=== PATIENT | female | born 1950 | race Caucasian/White ===

== ENCOUNTER → 2017-12-05 | Outpatient (CLI) | payer MEDICARE ==
[~2017-12-05] MED LIST: LIDODERM PATCH1 EA; LORCET 10-6501 EAC1; Z.0.AMBIEN CR12.5 MG; Z.0.ATIVAN0.5 MG PO; Z.0.CRESTOR10 MG; Z.0.LEXAPRO20 MG; Z.0.NEURONTIN300 MG PO; Z.0.PREMARIN0.625 MG; Z.0.SINGULAIR10 MG; Z.0.ULTRAM 50MG50 MG PO
== END ==
LOC: RAD 14:26
PROVIDERS: ATTEND Anesthesiology
DX: Z79.891 Long term (current) use of opiate analgesic (principal)
CPT/HCPCS: 93005

== ENCOUNTER 2018-06-15 12:21 | Emergency (ER) | payer MEDICARE, OTHER ==
[~2018-06-15] VITALS: Ht 157.5 cm; Wt 60.8 kg
[2018-06-15] MEDS ORDERED: SOD POLYSTYRENE SULFONATE SUSP 15 GM/60 ML BTL PO ONE (12:45)
[2018-06-15] MEDS ORDERED: PROMETHAZINE HCL 25 MG TAB PO ONE (13:00)
[2018-06-15] MEDS ORDERED: CITRATE OF MAGNESIA 300ML BOTTLE PO ONE (13:00)
--- NOTE | 2018-06-15 13:17 | Diagnostic Imaging Report ---
EXAM: ABDOMEN-1VIEW (KUB) DATE: 06/15/2018 12:37 PM INDICATION: pain COMPARISON: None FINDINGS: Bowel Gas Pattern: Non specific gas filled loops of bowel. Pneumoperitoneum: None. Suspicious Calcifications: None. Other: None. IMPRESSION: No acute findings. Signed by: Dr. Jose Roa MD on 06/15/2018 1:13 PM
[2018-06-15] MEDS ORDERED: HYDROCODONE/APAP 10MG-325MG TAB PO ONE (13:30)
[2018-06-15] MEDS ORDERED: LIDOCAINE JELLY 2% 10ML URO-JET ONE (13:30)
[2018-06-15] MEDS ORDERED: ONDANSETRON HCL 4 MG ORAL DISINTEGRATING TAB ONE (13:33)
[2018-06-15] MEDS ORDERED: LIDOCAINE VISC 2% SOLN 15 ML UDC TOP ONE (14:00)
[2018-06-15] MEDS ORDERED: MORPHINE SULFATE 2 MG/ML SYR IV ONE (14:30)
[2018-06-15] MEDS ORDERED: MORPHINE SULFATE INJ 4 MG/ML INJ IV ONE (14:30)
[2018-06-15] MEDS ORDERED: SOD PHOSPHATE/SOD BIPHOSPHATE ENEMA 132 ML BTL PR ONE (15:15)
== END 2018-06-15 15:55 | disposition home or self-care (01) ==
LOC: ER 12:21
DX: K59.00 Constipation, unspecified (principal); K56.41 Fecal impaction; I10 Essential (primary) hypertension; G89.29 Other chronic pain
CPT/HCPCS: 36415; 74018; 99284; J2270; Q0162

== ENCOUNTER 2018-08-12 10:13 | Emergency (ER) | payer MEDICARE ==
[~2018-08-12] VITALS: Ht 157.5 cm; Wt 60.8 kg
--- OUTSIDE RECORDS SUMMARY | 2018-08-12 10:16 | XMS REPORT ---
Author Author [facility] Address Unknown Phone Unavailable Care Team Providers Care Cellar Supervisor Name Role Phone Nida FIERRO Unavailable Unavailable Payers Payer Name Policy Type Policy Number Effective Date Expiration Date Problems This patient has no known problems. Allergies, Adverse Reactions, Alerts Allergy Name Allergy Type Status Severity Reaction(s) Onset Date Inactive Date Treating Clinician Comments triamcinolone acetonide DA Active U 2018-08-12 00:00:00 Sulfa (Sulfonamide Antibiotics) DA Active U 2018-08-12 00:00:00 sulfamethoxazole DA Active U 2018-08-12 00:00:00 trimethoprim DA Active U 2018-08-12 00:00:00 fentanyl DA Active U 2018-08-12 00:00:00 triamcinolone acetonide DA Active U 2015-03-03 00:00:00 Sulfa (Sulfonamide Antibiotics) DA Active U 2015-03-03 00:00:00 sulfamethoxazole DA Active U 2015-03-03 00:00:00 trimethoprim DA Active U 2015-03-03 00:00:00 fentanyl DA Active U 2015-03-03 00:00:00 Medications This patient has no known medications. Results Test Description Test Time Test Comments Text Results Atomic Results Result Comments ABDOMEN-1VIEW (KUB) 2018-06-15 13:13:00 [place] [id number] Patient Name: SANTOS MATSON MR #: [id number] : 1950 Age/Sex: 67/F Req #: [id number] Adm Physician: Ordered by: BRUNO SOSA NP Report #: [id number] Location: ER Room/Bed: Procedure: [id number] DX/ABDOMEN-1VIEW (KUB) Exam Date: Exam Time: REPORT STATUS: Signed EXAM: ABDOMEN-1VIEW (KUB) DATE: 06/15/2018 12:37 PM INDIC ATION: pain COMPARISON: None FINDINGS: Bowel Gas Pattern: Non specific gas filled loops of bowel. Pneumoperitoneum: None. Suspicious Calcifications: None. Other: None. IMPRESSION: No acute findings. Signed by: Dr. Jsoe Roa MD on 06/15/2018 1:13 PM Dictated By: JOSE ROA MD [id number] Transcribed By: ALMITA on 06/15/18 1313 COPY TO: BRUNO SOSA [employer]ENT
--- NOTE | 2018-08-12 10:40 | NUR ---
RECEIVED REPORT FROM REBECCA TRIAGE NURSE TO ASSUME PTS CARE. PT IN ER 11
[2018-08-12] MEDS ORDERED: LIDOCAINE JELLY 2% 10ML URO-JET TOP ONE (10:45)
[2018-08-12] MEDS ORDERED: SOD PHOSPHATE/SOD BIPHOSPHATE ENEMA 132 ML BTL PR ONE (10:45)
--- NOTE | 2018-08-12 11:23 | Diagnostic Imaging Report ---
EXAM: ABDOMINAL RADIOGRAPHS- 2 VIEWS (KUB) INDICATION: Constipation, abdominal pain. COMPARISON: KUB 06/15/2018. FINDINGS: There is a nonobstructive bowel gas pattern. There is a moderate amount of stool in the colon. There is no free intraperitoneal air. There are no abnormal calcifications overlying the kidneys or expected location of the bilateral ureters. No acute osseous abnormality. Mild degenerative changes of the lower lumbar spine. Post surgical clips in the right upper pelvis. IMPRESSION: No acute radiographic abnormality. Moderate amount of stool in the colon. Signed by: Dr. Ping Soot MD on 08/12/2018 11:19 AM
[2018-08-12] MEDS ORDERED: LACTULOSE SYRUP 20 GM/30 ML UDC PO ONE (11:30)
[2018-08-12] MEDS ORDERED: DOCUSATE SODIUM LIQD 100 MG/10 ML UDC NG ONE (11:30)
[2018-08-12] MEDS ORDERED: KETOROLAC TROMETHAMINE 30 MG/ML VIAL IV STA (12:22)
--- NOTE | 2018-08-12 12:23 | NUR ---
ER MD IN PATIENTS ROOM TO DISSIMPACT PATIENT. PATIENT REPORTED SHE COULDN'T CONTINUE AFTER ER MD WAS ABLE TO REMOVE SOME HARD STOOL. ER MD ASKED IF PATIENT WANTED TO SIT ON BEDSIDE CAMMODE AND TRY TO PASS MORE STOOL. PATIENT SAID "YES, I CAN'T KEEP GOING THROUGH THIS." PATIENT CLEANED AND ASSISTED TO BEDSIDE CAMMODE. BED CLEANED AND CALL LIGHT PLACED IN FRONT OF PATIENT ON STRETCHER. PATIENT'S FAMILY IN ROOM WITH PATIENT.
[2018-08-12] MEDS ORDERED: METHYLNALTREXONE BROMIDE 12 MG/0.6 ML VIAL SQ ONE (12:30)
[2018-08-12] MEDS ORDERED: METOCLOPRAMIDE HCL 10 MG/2ML VIAL IV ONE (12:30)
--- NOTE | 2018-08-12 12:40 | NUR ---
EMPTIED BEDPAIN. LARGE SOFT BM
--- NOTE | 2018-08-12 14:20 | NUR ---
DISCHARGE INSTRUCTIONS GIVEN. F/U CARE DISCUSSED. PT SAID PAIN IMPROVED. 10/16 AT DISCHARGE. SHE VERBALIZED UNDERSTANDING OF DISCHARGE INSTRUCTIONS. OUT OF ER WITH FAMILY, AMBULATORY WITH STEADY GAIT.
[2018-08-12 14:31] VITALS: BP 188/74
== END 2018-08-12 14:34 | disposition home or self-care (01) ==
LOC: ER 10:13
DX: K59.00 Constipation, unspecified (principal); R11.2 Nausea with vomiting, unspecified; I10 Essential (primary) hypertension; Z98.1 Arthrodesis status; Z87.891 Personal history of nicotine dependence
CPT/HCPCS: 74018; 99283; J1885; J2212; J2765; 99284